=== PATIENT | female | born 1995 | race Two or more races ===

== ENCOUNTER 2023-05-22 03:03 | Inpatient (IN) | payer OTHER ==
[~2023-05-22] VITALS: Ht 165.1 cm; Wt 83.9 kg
[2023-05-22 03:48] LABS: PH,URINE 6.5 (5.0-8.0); URINE APPEARANCE Clear; URINE BILIRRUBIN Negative (NEGATIVE); URINE BLOOD NHT; URINE COLOR Yellow; URINE GLUCOSE Negative (NEGATIVE); URINE LEUKOCYTE Trace; URINE NITRATE Negative; URINE PROTEIN Negative (NEGATIVE); URINE UROBILINOGEN 0.2 E.U./dl
[2023-05-22 03:49] LABS: HEMATOCRIT 36.1 % (36.0-45.00); MEAN CELL VOLUME 90.2 fL (80.00-100.00); MEAN CORPUSCULAR HEMOGLOBIN 29.8 pg (27.00-32.0); MEAN CORPUSCULAR HGB CONC 33.1 g/dl (32.0-36.0); PLATELET COUNT 307 K/uL (150-450); RED BLOOD COUNT 4.01 M/uL (4.00-6.00); RED CELL DISTRIBUTION WIDTH 13.5 % (11.5-14.5)
[2023-05-22 03:50] LABS: URINE EPITHELIAL CELLS 17.3 uL (0.0-38.8); URINE RBC 19.5 uL (0.0-20.8); URINE WBC 29.9 uL (0.0-23.2)
[2023-05-22 04:57] LABS: ALBUMIN 3.1 gm/dL (3.4-5.0); BILIRUBIN TOTAL 0.28 mg/dL (0.3-1.2); CALCIUM 9.1 mg/dL (8.5-10.1); CREATININE SERUM 0.42 mg/dL (0.55-1.02); GFR 180.98; GLOBULINA 3.4 G/DL (2.4-3.5); POTASSIUM 3.6 mEq/L (3.5-5.1); TOTAL PROTEIN 6.5 gm/dL (6.4-8.2)
[2023-05-22 12:45] LABS: RH POSITIVE
[2023-05-23 03:57] LABS: URINE PROT QUANT 24HR 5.5 MG/DL
== END 2023-05-24 11:37 | disposition home or self-care (01) | DRG 832 ==
LOC: OBS/DEL 03:03 → OB/GYN 11:00 → LDR 11:00 → OB/GYN 12:32
PROVIDERS: ADMIT Student in an Organized Health Care Education/Training Program; ATTEND Student in an Organized Health Care Education/Training Program
PROC: 4A1HXCZ Monitoring of Products of Conception, Cardiac Rate, External Approach (ICD-10-PCS; principal; 2023-05-22)
PROC: BY4CZZZ Ultrasonography of Second Trimester, Single Fetus (ICD-10-PCS; 2023-05-22)
PROC: BU4CZZZ Ultrasonography of Uterus and Ovaries (ICD-10-PCS; 2023-05-22)
PROC: BY4CZZZ Ultrasonography of Second Trimester, Single Fetus (ICD-10-PCS; 2023-05-22)
DX: O10.012 Pre-existing essential hypertension complicating pregnancy, second trimester (principal); O44.02 Complete placenta previa NOS or without hemorrhage, second trimester; O13.2 Gestational [pregnancy-induced] hypertension without significant proteinuria, second trimester; O26.853 Spotting complicating pregnancy, third trimester; Z3A.23 23 weeks gestation of pregnancy; Z20.822 Contact with and (suspected) exposure to COVID-19; O36.80X0 Pregnancy with inconclusive fetal viability, not applicable or unspecified; O26.892 Other specified pregnancy related conditions, second trimester; R51.9 Headache, unspecified